=== PATIENT | female | born 1995 | race Caucasian/White ===

== ENCOUNTER 2021-02-21 07:13 | Emergency (ER) | payer OTHER ==
[2021-02-21 07:31] VITALS: TEMP 98.2; BMI 25.8
[2021-02-21 08:22] LABS: BASO % 0.7 % (0-2.0); EOS % 1.7 % (0-4.5); HEMATOCRIT 40.2 % (32.4-45.2); HEMOGLOBIN 13.6 GM/dL (10.7-15.3); LYMPH % 29.2 % (8-40); MCHC 33.9 g/dl (32.0-36.0); MEAN CELL VOLUME 91.6 fl (80-96); MEAN PLT VOLUME 9.1 fl (7.5-11.1); MONO % 9.8 % (3.8-10.2); NEUT % 58.6 % (42.8-82.8); PLATELET COUNT 196 K/MM3 (134-434); RBC 4.39 M/mm3 (3.60-5.2); RDW 13.2 % (11.6-15.6); WHITE BLOOD COUNT 6.5 K/mm3 (4.0-10.0)
[2021-02-21 09:33] VITALS: BP 101/65; PULSE 66
[2021-02-21 09:48] LABS: BLOOD UREA NITROGEN 16.1 mg/dL (7-18); CALCIUM 9.1 mg/dL (8.5-10.1)
[2021-02-21 09:49] LABS: ALBUMIN 3.8 g/dl (3.4-5.0)
[2021-02-21 09:52] LABS: CREATININE 0.6 mg/dL (0.55-1.3)
[2021-02-21 09:53] LABS: BILIRUBIN,TOTAL 0.3 mg/dL (0.2-1); TOT PROT 6.9 g/dl (6.4-8.2)
== END 2021-02-21 11:13 | disposition home or self-care (01) ==
LOC: JER 07:13
DX: M54.6 Pain in thoracic spine (principal)
CPT/HCPCS: 36415; 71275-TC; 80053; 84703; 85025; 85379; 93005; 93010; 99285-25; Q9967